=== PATIENT | female | born 1980 | race African-American/Black ===

== ENCOUNTER 2018-08-21 11:37 | Emergency (ER) | payer OTHER ==
[~2018-08-21] VITALS: Ht 177.8 cm; Wt 103.6 kg
[2018-08-21 12:30] VITALS: BP 135/83
[2018-08-21 13:35] LABS: CALCIUM 8.7 mg/dL (8.5-10.1); CARBON DIOXIDE 24.5 mmol/L (21-32); CHLORIDE SERUM 99 mmol/L (98-107); CREATININE SERUM 0.8 mg/dL (0.6-1.0); GFR1 > 60 mL/min; GLUCOSE SERUM 94 mg/dL (74-106); POTASSIUM SERUM 3.5 mmol/L (3.5-5.1); SODIUM SERUM 133 mmol/L (136-145)
[2018-08-21 13:40] LABS: ALBUMIN 3.8 g/dL (3.4-5.0); ALKALINE PHOSPHATASE 93 U/L (46-116); ALT/SGPT 18 U/L (14-59); AST/SGOT 16 U/L (15-37); BILIRUBIN TOTAL 0.44 mg/dL (0.20-1.00)
[2018-08-21 13:41] LABS: TOTAL PROTEIN, SERUM 9.3 g/dL (6.4-8.2)
[2018-08-21 14:42] LABS: PLATELET COUNT 384 x10^3mcL (130-400)
[2018-08-21 14:43] LABS: ATYPICAL LYMPH 10 %; BAND NEUTROPHIL 0 % (0-10); BASOPHIL 3 % (0-2); MONOCYTE 4 % (0-7); SEGMENTED NEUTROPHILS 66 % (37-75); rbc morphology (normal/abnorm) ABNORMAL (NORMAL)
[2018-08-21 14:44] LABS: PLATELET MORPHOLOGY PLATELETS INCREASED
== END 2018-08-21 15:25 | disposition home or self-care (01) ==
LOC: ED 11:37
PROVIDERS: Emergency Medicine
DX: D50.9 Iron deficiency anemia, unspecified (principal)
CPT/HCPCS: 36415

== ENCOUNTER 2019-05-17 11:00 | Emergency (ER) | payer SELFPAY ==
[~2019-05-17] VITALS: Ht 180.3 cm; Wt 89.8 kg
[2019-05-17 11:26] VITALS: BP 129/90; Ht 180.3 cm; Wt 89.8 kg
== END 2019-05-17 13:25 | disposition home or self-care (01) ==
LOC: ED 11:00
DX: M76.61 Achilles tendinitis, right leg (principal)